=== PATIENT | male | born 1945 | race Caucasian/White ===

== ENCOUNTER → 2017-12-19 | Emergency (ER) | payer MEDICARE ==
[~2017-12-19] MED LIST: Pepcid 20 MG VIAL IV ONE; Sodium Chloride 0.9% 1000 ML 1,000 ML ONE
--- NOTE | 2017-12-19 16:26 | XRAY ---
Indication: Syncope. Comparison: March 08, 2011. Portable chest remains hyperinflated and clear with a few incidental calcified granulomas. Heart is not enlarged for AP portable technique again demonstrating previous cardiac valvular replacement surgery. Bony thorax intact again with mild osteopenia and degenerative changes. Impression: Stable nonacute hyperinflated chest with chronic features.
[2017-12-19 16:27] LABS: Granulocyte Absolute (ANC) 8.54 (1.4-6.9); Hematocrit 36.8 % (42-50); Hemoglobin 12.3 gm/dl (12.5-18.0); Mean Cell Volume 95.8 fl (78-100); Mean Corpuscular Hgb Concent. 33.4 g/dl (32-36); Mean Platelet Volume 9.9 fl (6-9.5); Platelet Count 290 K/mm3 (150-450); Red Blood Count 3.84 M/mm3 (4.1-5.6); Red Cell Distribution Width 14.8 % (11.5-14.0); White Blood Count 10.2 K/mm3 (4.0-10.5)
[2017-12-19 16:37] LABS: INR 2.08 (0.8-3.0)
[2017-12-19 16:40] LABS: ALBUMIN 3.5 g/dL (3.5-5.0); ANION GAP 14.1 MEQ/L (5-15); BILIRUBIN,TOTAL 0.9 mg/dL (0.2-1.3); Creatinine 1 2.23 mg/dL (0.66-1.25); Potassium 4.2 mmol/L (3.5-5.1)
[2017-12-19 16:51] LABS: ABO TYPING A
[2017-12-19 16:52] LABS: Antibody Screen NEGATIVE (NEGATIVE); RH TYPING POSITIVE
[2017-12-19 16:55] LABS: Lymphocytes 9 % (24-44); Monocyte 4 % (0.0-12.0); Neutrophils 87 % (36.-66.); Platelet Estimate NORMAL (NORMAL); Total Cells Counted 100
--- NOTE | 2017-12-19 17:56 | ERPHSYRPT ---
- History of Present Illness Time Seen by Provider: 12/19/17 15:47 Source: patient, family, EMS, other (Dr Esparza) Patient Subjective Stated Complaint: [facility] weakness,hypotension and low heart rate, Triage Nursing Assessment: pt states he racently was in hospital for uti and has not felt well since, co weakness Physician History: CC: syncope Hx: 72 y/o patient of Dr Esparza. He has recent admission X 2 at [facility] for CHF. He went to Dr Esparza office today. Was feling weak. In the waiting room he had a syncopal spell in which he passed out in the WR. No fall or injury. He had barely palpable pulse at that time. Was sent to ER. Improved with IVF bolus en route. He denies chest pain or shortness of breath. He has no headache. No focal weakness. No fever or chills. Had recent UTI at [facility]. Sees Dr Calixto cardiology. Severity: severe Allergies/Adverse Reactions: erythromycin base Allergy (Severe, Verified 12/19/17 16:09) Hives tramadol Allergy (Severe, Verified 12/19/17 16:09) URINE OUTPUT DOWN lisinopril Allergy (Verified 12/19/17 16:09) Home Medications: Amlodipine Besylate 5 mg [Norvasc 5 mg] 5 mg PO BID 10/22/14 [History] Carboxymethylcellulose Sodium [Thera Tears] 1 drop OP QID 10/22/14 [History] Cilostazol 100 mg PO BID 10/22/14 [History] Clopidogrel Bisulfate 75 mg [PLAVIX 75 MG Tablet] 75 mg PO DAILY 10/22/14 [History] Cyanocobalamin (Vitamin B-12) [Cyanocobalamin] 100 mcg PO DAILY 10/22/14 [ History] Digoxin 0.125 mg Tablet [Lanoxin 0.125MG TABLET] 0.125 mg PO DAILY [History] Ferrous Sulfate 325 mg [Feosol 325 mg] 325 mg PO DAILY 10/22/14 [History] Finasteride 5 mg [Proscar 5 MG] 5 mg PO DAILY 10/22/14 [History] Furosemide 40 mg PO BID PRN PRN 10/22/14 [History] Gemfibrozil 600 mg [Lopid 600 mg] 600 mg PO BID 10/22/14 [History] Glimepiride 4 mg [Amaryl 4 mg] 4 mg PO DAILY 10/22/14 [History] Glipizide 2.5 mg [Glucotrol Xl 2.5 MG] 2.5 mg PO DAILY 10/22/14 [History] Hydralazine HCl 100 mg PO BID 10/22/14 [History] Hydrocodone Bit/Acetaminophen [Hydrocodon-Acetaminophn 10-325] 1 each PO Q6HPRN PRN 10/22/14 [History] Insulin Aspart [Novolog Flexpen] 0 unit SQ UD 10/22/14 [History] Isosorbide Mononitrate 60 mg [Imdur 60MG] 60 mg PO DAILY 10/22/14 [History] Ketotifen Fumarate [Antihistamine Eye Drops] 1 drop OP BID 10/22/14 [History] Metoprolol Tartrate 50 mg [Lopressor 50 MG] 100 mg PO BID 10/22/14 [ History] Naproxen 250 mg PO BID 10/22/14 [History] Niacin 500 mg PO HS 10/22/14 [History] Nitroglycerin 0.4 mg Tablet [Nitrostat 0.4 MG Tablet] 0.4 mg SL UD PRN 06/26 [History] Potassium Chloride 10 Meq Tab* [Klor Con 10 MEQ] 10 meq PO BID 10/22/14 [ History] Pravastatin Sodium 40 mg PO HS 10/22/14 [History] Rivaroxaban 10 mg Tablet [Xarelto 10 mg Tablet] 10 mg PO DAILY 10/22/14 [ History] Tamsulosin HCl 0.4 mg [Flomax 0.4 MG] 2 cap PO HS 10/22/14 [History] Hx Tetanus, Diphtheria Vaccination/Date Given: No Hx Influenza Vaccination/Date Given: No Immunizations Up to Date: Yes - Review of Systems Constitutional: Malaise, Weakness, No Fever, No Chills Eyes: No Symptoms Ears, Nose, & Throat: No Symptoms Respiratory: No Cough, No Dyspnea Cardiac: Syncope, No Chest Pain, No Palpitations Abdominal/Gastrointestinal: No Abdominal Pain, No Nausea, No Vomiting, No Diarrhea Genitourinary Symptoms: Hesitancy, No Dysuria Skin: No Rash Neurological: No Headache All Other Systems: Reviewed and Negative - Past Medical History Pertinent Past Medical History: Yes Neurological History: TIA ENT History: No Pertinent History Cardiac History: Arrhythmia Respiratory History: No Pertinent History Endocrine Medical History: Diabetes Type II Musculoskeletal History: Arthritis GI Medical History: No Pertinent History History: Other Psycho-Social History: No Pertinent History Male Reproductive Disorders: Prostate Problems Other Medical History: recent UTI 2017 - Past Surgical History Past Surgical History: Yes Neuro Surgical History: No Pertinent History Cardiac: CABG, Cardiac Stent, Valve Replacement Respiratory: No Pertinent History Gastrointestinal: No Pertinent History, Hernia Repair Genitourinary: No Pertinent History Musculoskeletal: Joint Replacement Male Surgical History: Other Other Surgical History: R KNEE REPLACED - Social History Smoking Status: Unknown if ever smoked Exposure to second hand smoke: No Drug Use: none Patient Lives Alone: Yes - Nursing Vital Signs Nursing Vital Signs: Initial Vital Signs Temperature 97.0 F 12/19/17 15:44 Pulse Rate 60 12/19/17 15:44 Respiratory Rate 16 12/19/17 15:44 Blood Pressure 120/70 12/19/17 15:44 O2 Sat by Pulse Oximetry 96 12/19/17 15:44 Pain Scale Pain Intensity 0 - Physical Exam General Appearance: alert Eye Exam: PERRL/EOMI Ears, Nose, Throat Exam: moist mucous membranes Neck Exam: normal inspection, non-tender, supple Respiratory Exam: normal breath sounds Cardiovascular Exam: bradycardia, irregular Gastrointestinal/Abdomen Exam: soft, No tenderness, No distention Back Exam: normal inspection Extremity Exam: normal inspection, normal range of motion, No pedal edema Neurologic Exam: alert, oriented x 3, cooperative, hydro technician II-XII nml as tested, sensation nml, No motor deficits Skin Exam: warm, dry SpO2 Interpretation: normal SpO2: 96 Oxygen Delivery: Room Air - Course Nursing assessment & vital signs reviewed: Yes EKG Interpreted by Me: RATE (55), A-fib (slow), Left Bundle Branch Block ( similar to prior tracing) Ordered Tests: Active Orders 24 hr Category Date Time Status Clean Catch Urine Specimen STAT Care 12/19/17 15:47 Active EKG-ER Only STAT Care 12/19/17 15:47 Active IV Insertion STAT Care 12/19/17 15:47 Active NPO (ED) STAT Care 12/19/17 15:47 Active CHEST 1 VIEW (PORTABLE) Stat Exams 12/19/17 15:47 Completed CBC W DIFF Stat Lab 12/19/17 15:50 Completed CMP Stat Lab 12/19/17 15:50 Completed LIPASE Stat Lab 12/19/17 15:50 Completed Lactic Acid Stat Lab 12/19/17 16:55 Completed MAGNESIUM Stat Lab 12/19/17 15:50 Completed Manual Differential NC Stat Lab 12/19/17 15:50 Completed Occult Blood,Stool Other Stat Lab 12/19/17 15:47 Uncollected PROTIME WITH INR Stat Lab 12/19/17 15:50 Completed TROPONIN Q3H Lab 12/19/17 15:50 Completed TROPONIN Q3H Lab 12/19/17 19:00 Ordered TROPONIN Q3H Lab 12/19/17 22:00 Ordered TROPONIN Q3H Lab 12/20/17 01:00 Ordered TROPONIN Q3H Lab 12/20/17 04:00 Ordered UA W/RFX UR CULTURE Stat Lab 12/19/17 15:47 Ordered Medication Summary Discontinued Medications Generic Name Dose Route Start Last Admin Trade Name Freq PRN Reason Stop Dose Admin Famotidine 20 mg 12/19/17 15:47 Pepcid 20 Mg Vial IV 12/19/17 15:48 STAT ONE Sodium Chloride 250 mls @ 999 mls/hr 12/19/17 15:47 Sodium Chloride 0.9% 1000 Ml IV 12/19/17 16:02 .Q16M STA Lab/Rad Data: Laboratory Result Diagrams 12/19/17 15:50 12/19/17 15:50 Laboratory Results 12/19/17 12/19/17 12/19/17 Range/Units Unknown 16:55 15:50 WBC (4.0-10.5) K/mm3 RBC (4.1-5.6) M/mm3 Hgb (12.5-18.0) gm/dl Hct (42-50) % MCV (78-100) fl MCH (26-32) pg MCHC (32-36) g/dl RDW (11.5-14.0) % Plt Count (150-450) K/mm3 MPV (6-9.5) fl Absolute Granulocytes (1.4-6.9) Segmented Neutrophils (36.-66.) % Lymphocytes (Manual) (24-44) % Monocytes (Manual) (0.0-12.0) % Differential Comment Platelet Estimate (NORMAL) PT (8.83-12.87) SECONDS INR (0.8-3.0) Sodium (137-145) mmol/L Potassium (3.5-5.1) mmol/L Chloride (98-107) mmol/L Carbon Dioxide (22-30) mmol/L Anion Gap (5-15) MEQ/L BUN (9-20) mg/dL Creatinine (0.66-1.25) mg/dL Estimated GFR ML/MIN Glucose (74-106) mg/dL Lactic Acid 0.9 (0.4-2.0) Calcium (8.4-10.2) mg/dL Magnesium 2.3 (1.6-2.3) mg/dL Total Bilirubin (0.2-1.3) mg/dL AST (17-59) U/L ALT (0-50) U/L Alkaline Phosphatase (38-126) U/L Troponin I (0.000-0.034) ng/mL Serum Total Protein (6.3-8.2) g/dL Albumin (3.5-5.0) g/dL Lipase (23-300) U/L Digoxin 1.5 (0.8-1.9) ng/mL ABO Group Rh Factor Antibody Screen (NEGATIVE) 12/19/17 12/19/17 12/19/17 Range/Units 15:50 15:50 15:50 WBC (4.0-10.5) K/mm3 RBC (4.1-5.6) M/mm3 Hgb (12.5-18.0) gm/dl Hct (42-50) % MCV (78-100) fl MCH (26-32) pg MCHC (32-36) g/dl RDW (11.5-14.0) % Plt Count (150-450) K/mm3 MPV (6-9.5) fl Absolute Granulocytes (1.4-6.9) Segmented Neutrophils (36.-66.) % Lymphocytes (Manual) (24-44) % Monocytes (Manual) (0.0-12.0) % Differential Comment Platelet Estimate (NORMAL) PT 23.3 H (8.83-12.87) SECONDS INR 2.08 (0.8-3.0) Sodium (137-145) mmol/L Potassium (3.5-5.1) mmol/L Chloride (98-107) mmol/L Carbon Dioxide (22-30) mmol/L Anion Gap (5-15) MEQ/L BUN (9-20) mg/dL Creatinine (0.66-1.25) mg/dL Estimated GFR ML/MIN Glucose (74-106) mg/dL Lactic Acid (0.4-2.0) Calcium (8.4-10.2) mg/dL Magnesium (1.6-2.3) mg/dL Total Bilirubin (0.2-1.3) mg/dL AST (17-59) U/L ALT (0-50) U/L Alkaline Phosphatase (38-126) U/L Troponin I 0.042 H* (0.000-0.034) ng/mL Serum Total Protein (6.3-8.2) g/dL Albumin (3.5-5.0) g/dL Lipase (23-300) U/L Digoxin (0.8-1.9) ng/mL ABO Group A Rh Factor POSITIVE Antibody Screen NEGATIVE (NEGATIVE) 12/19/17 12/19/17 Range/Units 15:50 15:50 WBC 10.2 (4.0-10.5) K/mm3 RBC 3.84 L (4.1-5.6) M/mm3 Hgb 12.3 L (12.5-18.0) gm/dl Hct 36.8 L (42-50) % MCV 95.8 (78-100) fl MCH 32.0 (26-32) pg MCHC 33.4 (32-36) g/dl RDW 14.8 H (11.5-14.0) % Plt Count 290 (150-450) K/mm3 MPV 9.9 H (6-9.5) fl Absolute Granulocytes 8.54 H (1.4-6.9) Segmented Neutrophils 87 H (36.-66.) % Lymphocytes (Manual) 9 L (24-44) % Monocytes (Manual) 4 (0.0-12.0) % Differential Comment NORMAL Platelet Estimate NORMAL (NORMAL) PT (8.83-12.87) SECONDS INR (0.8-3.0) Sodium 130 L (137-145) mmol/L Potassium 4.2 (3.5-5.1) mmol/L Chloride 92 L (98-107) mmol/L Carbon Dioxide 28 (22-30) mmol/L Anion Gap 14.1 (5-15) MEQ/L BUN 76 H (9-20) mg/dL Creatinine 2.23 H (0.66-1.25) mg/dL Estimated GFR 31.1 ML/MIN Glucose 284 H (74-106) mg/dL Lactic Acid (0.4-2.0) Calcium 9.0 (8.4-10.2) mg/dL Magnesium (1.6-2.3) mg/dL Total Bilirubin 0.90 (0.2-1.3) mg/dL AST 28 (17-59) U/L ALT 26 (0-50) U/L Alkaline Phosphatase 57 (38-126) U/L Troponin I (0.000-0.034) ng/mL Serum Total Protein 6.0 L (6.3-8.2) g/dL Albumin 3.5 (3.5-5.0) g/dL Lipase 585 H (23-300) U/L Digoxin (0.8-1.9) ng/mL ABO Group Rh Factor Antibody Screen (NEGATIVE) - Progress Progress Note: 12/19/17 17:55 CXR: Portable chest remains hyperinflated and clear with a few incidental calcified granulomas. Heart is not enlarged for AP portable technique again demonstrating previous cardiac valvular replacement surgery. Bony thorax intact again with mild osteopenia and degenerative changes. Pt improved with IVF bolus. O2 ok. BP better. Was [address] Esparza who advised transfer to [facility] as troponin elevated and he had profound syncope and needs cardiology. 12/19/17 18:[address] Shelton hospitalist at [facility] whoo accepts pt. ASA not given as pt on coumadin. Cath urine ssent and is pending. Counseled pt/family regarding: lab results, diagnosis, need for follow-up, rad results - Departure Time of Disposition: 18:09 Departure Disposition: Transfer ([facility]) Clinical Impression: Syncope and collapse, Bradycardia, Elevated troponin Condition: Fair Critical Care Time: No Referrals: KARI ESPARZA [Primary Care Provider] -
[2017-12-19 18:17] LABS: Appearance CLEAR (CLEAR); Bilirubin NEGATIVE (NEGATIVE); Blood NEGATIVE Ery/ul (0-5); Glucose NEGATIVE (NEGATIVE); Ketones NEGATIVE (NEGATIVE); Leukocyte Esterase NEGATIVE (NEGATIVE); Nitrite NEGATIVE (NEGATIVE); Protein,Urine Dip NEGATIVE (Negative); Specific Gravity 1.015 (1.005-1.025); Urobilinogen NORMAL mg/dL (0-1)
[2017-12-19 18:53] VITALS: BP 114/52; PULSE 64; O2SAT 98
== END | disposition short-term general hospital (02) ==
LOC: ED 15:43
DX: R55 Syncope and collapse (principal); R00.1 Bradycardia, unspecified; R77.8 Other specified abnormalities of plasma proteins; I48.91 Unspecified atrial fibrillation; I44.7 Left bundle-branch block, unspecified; Z79.4 Long term (current) use of insulin; Z79.899 Other long term (current) drug therapy; Z79.01 Long term (current) use of anticoagulants; E11.9 Type 2 diabetes mellitus without complications
CPT/HCPCS: 36000; 36415; 71045; 80053; 80162; 81002; 83605; 83690; 83735; 84484; 85025; 85610; 86850; 86900; 86901; 93005; 93041; 96360; 96374; 99285; P9612; 99283

== ENCOUNTER 2018-01-26 10:55 | Emergency (ER) | payer MEDICARE ==
[2018-01-26 11:32] LABS: Granulocyte Absolute (ANC) 5.97 (1.4-6.9); Hematocrit 44.7 % (42-50); Hemoglobin 14.6 gm/dl (12.5-18.0); Mean Cell Volume 96.5 fl (78-100); Mean Corpuscular Hemoglobin 31.5 pg (26-32); Mean Corpuscular Hgb Concent. 32.7 g/dl (32-36); Mean Platelet Volume 9.4 fl (6-9.5); Platelet Count 216 K/mm3 (150-450); Red Blood Count 4.63 M/mm3 (4.1-5.6); Red Cell Distribution Width 16.2 % (11.5-14.0); White Blood Count 9.7 K/mm3 (4.0-10.5)
[2018-01-26 11:33] LABS: ADD MANUAL DIFF? YES (NO)
[2018-01-26] MEDS ORDERED: Sodium Chloride 0.9% 1000 ML 1,000 ML (11:37)
[2018-01-26] MEDS: Sodium Chloride 0.9% 1000 ML 1,000 ML IV (11:38)
[2018-01-26 12:07] LABS: ALBUMIN 3.9 g/dL (3.5-5.0); ALKALINE PHOSPHATASE 65 U/L (38-126); BLOOD UREA NITROGEN 37 mg/dL (9-20); CHLORIDE 98 mmol/L (98-107); Calcium 9.9 mg/dL (8.4-10.2); Carbon Dioxide 31 mmol/L (22-30); Creatinine 1 1.53 mg/dL (0.66-1.25); EST GLOMERULAR FILTRATION RATE 48.1 ML/MIN; Glucose 99 mg/dL (74-106); Potassium 3.7 mmol/L (3.5-5.1); SGOT/AST 28 U/L (17-59); SGPT/ALT 26 U/L (0-50); SODIUM 141 mmol/L (137-145); Total Protein 6.8 g/dL (6.3-8.2)
[2018-01-26 12:23] LABS: TROPONIN 0.071 ng/mL (0.000-0.034)
[2018-01-26 13:51] LABS: Lymphocytes 29 % (24-44); Monocyte 4 % (0.0-12.0); Neutrophils 67 % (36.-66.); Total Cells Counted 100
[2018-01-26 13:52] LABS: ANISOCYTOSIS 1+; Platelet Estimate NORMAL (NORMAL)
== END 2018-01-26 13:06 | disposition left against medical advice (07) ==
LOC: ED 10:55
CPT/HCPCS: 36000; 36415; 71046; 80053; 84484; 85025; 93005

== ENCOUNTER 2018-02-27 10:34 | Inpatient (IN) | payer MEDICARE ==
[2018-02-27 11:31] LABS: A-aADO2 82; ABG POTASSIUM 3.5 (3.5-5.1); ARTERIAL BLD GAS O2 SATURATION 97.6 % (95-100); ARTERIAL BLOOD GAS BASE EXCESS 5.9 (-2.0-2.0); ARTERIAL BLOOD GAS FIO2 28 %; ARTERIAL BLOOD GAS PCO2 31 mmHg (35-45); ARTERIAL BLOOD GAS PO2 79 mmHg (75-100); CARBOXYHEMOGLOBIN 1.7 % THgb (0.0-6.9); HCO3- 27.8 (22-28); HGB O2 SAT 94.9 g/dF (94-100); Lactic Acid 1.9 (0.4-2.0); Methhemoglobin 1.1 % (1.4-1.5); paO2 pAO1 0.49
[2018-02-27] MEDS ORDERED: Sodium Chloride 0.9% 10 ML FLUSH Syringe IV PRN (11:31)
[2018-02-27 11:34] LABS: ARTERIAL BLOOD GAS pH 7.56 (7.35-7.45)
[2018-02-27 11:35] LABS: ABG SITE RIGHT RADIAL; ALLEN TEST OK? YES
[2018-02-27 11:39] LABS: BASOPHIL % 0.1 % (0.0-0.4); Basophil (Absolute #) 0.01 (0-0.4); Eosinophil % 1.3 % (0.00-5.0); Eosinophil (Absolute #) 0.14 (0-0.5); Granulocyte Absolute (ANC) 8.64 (1.4-6.9); Granulocytes % 82.9 % (36.0-66.0); Hematocrit 40.6 % (42-50); Hemoglobin 13.6 gm/dl (12.5-18.0); Lymphocyte (Absolute #) 0.99 (1.0-4.6); Lymphocytes % 9.5 % (24.0-44.0); Mean Cell Volume 91.4 fl (78-100); Mean Corpuscular Hemoglobin 30.6 pg (26-32); Mean Corpuscular Hgb Concent. 33.5 g/dl (32-36); Mean Platelet Volume 8.6 fl (6-9.5); Monocyte (Absolute #) 0.65 (0.0-1.3); Monocytes % 6.2 % (0.0-12.0); Platelet Count 262 K/mm3 (150-450); Red Blood Count 4.44 M/mm3 (4.1-5.6); Red Cell Distribution Width 15.4 % (11.5-14.0); White Blood Count 10.4 K/mm3 (4.0-10.5)
[2018-02-27] MEDS: ROCEPHIN 1 Gm-D5w 50 ml Bag** 1 G/50 ML IVPB IV SCH (11:59)
[2018-02-27] MEDS ORDERED: TYLENOL 325 MG PO ONE (12:00)
[2018-02-27] MEDS: Sodium Chloride 0.9% 10 ML FLUSH Syringe IV SCH ×2 (12:06→21:22)
--- NOTE | 2018-02-27 12:21 | XRAY ---
Indication: Fever and weakness. Comparison: January 26, 2018. PA/lateral chest again hyperinflated with new right lower lobe airspace disease and small effusion. Left lung clear. Heart is not enlarged again demonstrating previous cardiac valvular replacement surgery.
[2018-02-27 12:41] LABS: ALBUMIN 3.6 g/dL (3.5-5.0); ANION GAP 13.4 MEQ/L (5-15); BILIRUBIN,TOTAL 0.6 mg/dL (0.2-1.3); Calcium 10.2 mg/dL (8.4-10.2); Creatinine 1 1.29 mg/dL (0.66-1.25); Potassium 3.7 mmol/L (3.5-5.1); Total Protein 6.7 g/dL (6.3-8.2)
[2018-02-27] MEDS ORDERED: TYLENOL 325 MG PO PRN (13:00)
[2018-02-27] MEDS ORDERED: Zithromax 500 MG/ 250 ML NaCl Premix 500 MG/250 ML IVPB IV SCH (13:15)
[2018-02-27 13:43] LABS: Appearance HAZY (CLEAR); Bacteria RARE /HPF (NEGATIVE); Bilirubin NEGATIVE (NEGATIVE); Blood 50 Ery/ul (0-5); Epithelial Cells RARE /HPF (FEW); Glucose NEGATIVE (NEGATIVE); Ketones NEGATIVE (NEGATIVE); Leukocyte Esterase TRACE (NEGATIVE); Nitrite NEGATIVE (NEGATIVE); Protein,Urine Dip 500 (Negative); RBC 0-2 /HPF (0-2); Urobilinogen NORMAL mg/dL (0-1); WBC 0-2 /HPF (0-5)
[2018-02-27] MEDS ORDERED: DUONEB 0.5-3 MG/3 ml Neb IH ONE (14:28)
[2018-02-27] MEDS: DUONEB 0.5-3 MG/3 ml Neb IH SCH (14:30)
[2018-02-27] MEDS ORDERED: NON-FORMULARY ITEM (Ondansetron Hcl [Zofran] 4 MG) PO PRN (14:58)
[2018-02-27] MEDS ORDERED: Miralax Powder 17GM PACKET PO PRN (14:58)
[2018-02-27] MEDS ORDERED: Nitrostat 0.4 MG Tablet SL PRN (14:58)
[2018-02-27] MEDS ORDERED: Senokot-S Tablet PO PRN (14:58)
[2018-02-27 15:39] LABS: INR 4.15 (0.8-3.0)
[2018-02-27] MEDS ORDERED: MEDICATION INTERVENTION MC SCH ×2 (16:15→16:30)
[2018-02-27] MEDS ORDERED: ZOFRAN ODT 4 MG PO PRN (16:17)
[2018-02-27] MEDS: Klor Con 10 MEQ PO SCH ×2 (16:18→21:17)
[2018-02-27] MEDS: BUMEX 1 MG PO SCH (16:18)
[2018-02-27] MEDS: NovoLOG Insulin SQ SCH (16:56)
[2018-02-27] MEDS ORDERED: INSULIN ASPART 3 UNIT SQ SCH (17:00)
[2018-02-27] MEDS: Lopressor 50 MG PO SCH (21:16)
[2018-02-27] MEDS: FEOSOL 325 MG PO SCH (21:17)
[2018-02-27] MEDS: NON-FORMULARY ITEM (Hydroxychloroquine Sulfate [Plaquenil] 0 MG) PO SCH (21:17)
[2018-02-27] MEDS: ZOCOR 20MG PO SCH (21:17)
[2018-02-27] MEDS: Acidophilus TABLET PO SCH (21:17)
[2018-02-27] MEDS: Lantus Insulin SQ SCH (21:18)
[2018-02-27] MEDS: Ambien 10 MG PO PRN (21:56)
[2018-02-27] MEDS ORDERED: BIFIDO LONGUM PO SCH (22:00)
[2018-02-27] MEDS ORDERED: NON-FORMULARY ITEM (Glycopyrrolate/Formoterol Fum [Bevespi Aerosphere Inhaler] 2 PUFF) IH SCH (22:00)
[2018-02-27] MEDS ORDERED: ACIDOPHILUS PO SCH (22:00)
[2018-02-27] MEDS ORDERED: NON-FORMULARY ITEM (Colestipol Hcl [Colestid] 1 GM) PO SCH (22:00)
[2018-02-27] MEDS ORDERED: NIACIN 500 MG PO SCH (22:00)
[2018-02-27] MEDS ORDERED: NON-FORMULARY ITEM (Bumetanide [Bumex] 2 MG) PO SCH (22:00)
[2018-02-28] MEDS: Sodium Chloride 0.9% 10 ML FLUSH Syringe IV SCH ×3 (05:05→22:09)
[2018-02-28 05:36] LABS: BASOPHIL % 0.2 % (0.0-0.4); Basophil (Absolute #) 0.02 (0-0.4); Eosinophil % 3.4 % (0.00-5.0); Eosinophil (Absolute #) 0.28 (0-0.5); Granulocyte Absolute (ANC) 5.84 (1.4-6.9); Granulocytes % 71.6 % (36.0-66.0); Hematocrit 38.9 % (42-50); Hemoglobin 12.8 gm/dl (12.5-18.0); Lymphocyte (Absolute #) 1.41 (1.0-4.6); Lymphocytes % 17.3 % (24.0-44.0); Mean Cell Volume 92.8 fl (78-100); Mean Corpuscular Hemoglobin 30.5 pg (26-32); Mean Corpuscular Hgb Concent. 32.9 g/dl (32-36); Monocyte (Absolute #) 0.61 (0.0-1.3); Monocytes % 7.5 % (0.0-12.0); Platelet Count 256 K/mm3 (150-450); Red Blood Count 4.19 M/mm3 (4.1-5.6); Red Cell Distribution Width 15.5 % (11.5-14.0); White Blood Count 8.2 K/mm3 (4.0-10.5)
[2018-02-28 05:48] LABS: INR 4.04 (0.8-3.0)
[2018-02-28 05:57] LABS: ANION GAP 11.3 MEQ/L (5-15); Calcium 9.4 mg/dL (8.4-10.2); Creatinine 1 1.34 mg/dL (0.66-1.25); Potassium 3.9 mmol/L (3.5-5.1)
[2018-02-28] MEDS: PROVENTIL 2.5 MG/3 ML NEB IH PRN ×2 (07:02→20:03)
[2018-02-28] MEDS: DUONEB 0.5-3 MG/3 ml Neb IH SCH ×2 (07:06)
--- NOTE | 2018-02-28 07:50 | PCM.HP ---
History of Present Illness - Chief Complaint Chief Complaint: pneumonia Date: 02/28/18 History of Present Illness: is a 72 year old male. who presented to the clinic with 3 days of cough fatigue and no energy with shortness of breath. He found to be febrile and dyspneic and admitted for evaluation that showed pneumonia. He was placed on antibiotics and feels a little better this am still weak and fatigued. He has had increased cough this am productive of some brown/ blood tinged mucous - Review of Systems Constitutional: Fever, Chills, Fatigue, Lethargy, Night Sweats, Weakness Eyes: No Symptoms Ears, Nose, & Throat: No Symptoms Respiratory: Cough, Short Of Breath Cardiac: No Chest Pain, No Edema, No Syncope Abdominal/Gastrointestinal: No Abdominal Pain, No Nausea, No Vomiting, No Diarrhea Genitourinary Symptoms: No Dysuria Musculoskeletal: No Back Pain, No Neck Pain Skin: No Rash Neurological: No Dizziness, No Focal Weakness, No Sensory Changes Psychological: No Symptoms Endocrine: No Symptoms Hematologic/Lymphatic: No Symptoms Immunological/Allergic: No Symptoms Medications & Allergies Home Medications: Home Medication List Clopidogrel Bisulfate 75 mg [PLAVIX 75 MG Tablet] 75 mg PO DAILY 10/22/14 [History Confirmed 02/27/18] Ferrous Sulfate 325 mg [Feosol 325 mg] 325 mg PO BID 10/22/14 [History Confirmed 02/27/18] Finasteride 5 mg [Proscar 5 MG] 5 mg PO DAILY 10/22/14 [History Confirmed 02/27/18] Insulin Aspart [Novolog Flexpen] 3 unit SQ TIDWMEALS 10/22/14 [History Confirmed 02/27/18] Metoprolol Tartrate 50 mg [Lopressor 50 MG] 100 mg PO BID 10/22/14 [ History Confirmed 02/27/18] Niacin 500 mg PO HS 10/22/14 [History Confirmed 02/27/18] Nitroglycerin 0.4 mg Tablet [Nitrostat 0.4 MG Tablet] 0.4 mg SL UD PRN 06/26 [History Confirmed 02/27/18] Potassium Chloride 10 Meq Tab* [Klor Con 10 MEQ] 10 meq PO TID 10/22/14 [ History Confirmed 02/27/18] Tamsulosin HCl 0.4 mg [Flomax 0.4 MG] 2 cap PO DAILY 10/22/14 [History Confirmed 02/27/18] Acidophilus/Bifido Longum [Lactobacillus Capsule] 1 tab PO BID 01/26/18 [ History Confirmed 02/27/18] Allopurinol [Allopurinol] 100 mg PO DAILY 01/26/18 [History Confirmed 02/27/18] Atorvastatin Calcium [Lipitor 40Mg] 40 mg PO DAILY 01/26/18 [History Confirmed 02/27/18] Bumetanide [Bumex] 2 mg PO BID 01/26/18 [History Confirmed 02/27/18] Colestipol HCl [Colestid] 1 gm PO BID 01/26/18 [History Confirmed 02/27/18] Folic Acid 1 mg [Folate 1 mg] 1 mg PO DAILY 01/26/18 [History Confirmed ] Hydroxychloroquine Sulfate [Plaquenil] 200 mg PO BID 01/26/18 [History Confirmed 02/27/18] Prednisone 20 mg [Deltasone 20 mg] 20 mg PO DAILY 01/26/18 [History Confirmed 02/27/18] Warfarin Sodium [Warfarin Sodium] 6 mg PO UD 01/26/18 [History Confirmed ] Zolpidem Tartrate 10 mg [Ambien 10 MG] 10 mg PO HSPRN PRN 01/26/18 [History Confirmed 02/27/18] Albuterol 2.5 mg/3 ml Neb [Proventil 2.5 mg/3 ml Neb] 1 neb IH Q6HPRN PRN 02/27/18 [History Confirmed 02/27/18] Albuterol Common Canister [Proventil Common Canister] 2 puff IH Q4HPRN PRN 02/27/18 [History Confirmed 02/27/18] Digoxin 0.125 mg Tablet [Lanoxin 0.125MG TABLET] 0.125 mg PO DAILY [History Confirmed 02/27/18] Glycopyrrolate/Formoterol Fum [Bevespi Aerosphere Inhaler] 2 puff IH BID [History Confirmed 02/27/18] Insulin Glargine [Lantus Insulin] 20 unit SQ HS 02/27/18 [History Confirmed 02/27/18] Mupirocin [Bactroban OINTMENT] 1 applic TOP DAILY 02/27/18 [History Confirmed 02/27/18] Ondansetron HCl [Zofran] 4 mg PO Q4HPRN PRN 02/27/18 [History Confirmed 02/27/18 ] Oxymetazoline HCl [Nasal [place]] 1 spray NS DAILY PRN PRN 02/27/18 [History Confirmed 02/27/18] Polyethylene Glycol 3350 17 gm [Miralax Powder 17GM PACKET] 17 gm PO BIDPRN PRN 02/27/18 [History Confirmed 02/27/18] Sennosides/Docusate Sodium [Senna-Docusate Sodium Tablet] 2 tab PO BIDPRN PRN [History Confirmed 02/27/18] Umeclidinium Brm/Vilanterol Tr [Anoro Ellipta 62.5-25 Mcg INH] 1 puff IH DAILY 02/27/18 [History Confirmed 02/27/18] Warfarin Sodium 2.5 mg [Coumadin 2.5 MG] 2.5 mg PO UD 02/27/18 [History Confirmed 02/27/18] Allergies/Adverse Reactions: Allergies Allergy/AdvReac Type Severity Reaction Status Date / Time erythromycin base Allergy Severe Hives Verified 02/27/18 11:39 tramadol Allergy Severe Verified 02/27/18 11:39 lisinopril Allergy Verified 02/27/18 11:39 - Past Medical History Past Medical History: Yes Neurological History: TIA ENT History: No Pertinent History Cardiac History: Arrhythmia Respiratory History: No Pertinent History Endocrine Medical History: Diabetes Type II Musculoskelatal History: Arthritis GI Medical History: No Pertinent History History: Other Pyscho-Social History: No Pertinent History Male Reproductive Disorders: Prostate Problems Comment: recent UTI 2017 - Past Surgical History Past Surgical History: Yes Neuro Surgical History: No Pertinent History Cardiac History: CABG, Cardiac Stent, Valve Replacement Respiratory Surgery: No Pertinent History GI Surgical History: No Pertinent History, Hernia Repair Genitourinary Surgical Hx: No Pertinent History Musculskeletal Surgical Hx: Joint Replacement Male Surgical History: Other Other Surgical History: R KNEE REPLACED - Social History Smoking Status: Never smoker Exposure to second hand smoke: No Alcohol: None Drug Use: none - Physical Exam Vital Signs: Vital Signs - 24 hr Temp Pulse Resp BP Pulse Ox 02/28/18 07:23 98.2 F 82 18 136/78 94 L 02/28/18 07:06 72 24 95 02/28/18 04:00 99.2 F 80 22 137/70 95 02/28/18 00:00 98.1 F 70 18 148/73 97 02/27/18 20:00 97.3 F 98 H 18 136/82 98 02/27/18 16:00 98.4 F 105 H 18 144/72 98 02/27/18 14:34 93 H 20 96 02/27/18 13:45 100 H 20 96 02/27/18 11:38 100.5 F 100 H 18 132/71 89 L 02/27/18 10:50 100.5 F 100 H 132/71 Oxygen-Last 24 hours O2 Percentage 2 Liters = 28% O2 Percentage 2 Liters = 28% O2 Percentage 2 Liters = 28% O2 Percentage 3 Liters = 32% Oxygen Flowrate (L/min)-RT 2 General Appearance: no apparent distress, alert Neurologic Exam: alert, oriented x 3, cooperative, normal mood/affect, nml cerebellar function, nml station & gait, sensation nml, No motor deficits Eye Exam: PERRL/EOMI, eyes nml inspection Ears, Nose, Throat Exam: normal ENT inspection, pharynx normal, moist mucous membranes Neck Exam: normal inspection, non-tender, supple, full range of motion Respiratory Exam: crackles/rales (right base), No respiratory distress Cardiovascular Exam: regular rate/rhythm, normal heart sounds, normal peripheral pulses Gastrointestinal/Abdomen Exam: soft, normal bowel sounds, No tenderness, No mass Back Exam: normal inspection, normal range of motion, No CVA tenderness, No vertebral tenderness Extremity Exam: normal inspection, normal range of motion, pelvis stable Skin Exam: normal color, warm, dry, No rash Lymphatic Exam: No adenopathy Results - Labs Lab/Micro Results: Accuchecks Date 02/27/18 Date 02/27/18 Time 22:00 Time 16:30 Accucheck Value: 321 Accucheck Value: 261 Lab Results-Last 24 Hours 02/27/18 02/27/18 02/27/18 Range/Units 11:15 11:29 11:29 WBC 10.4 (4.0-10.5) K/mm3 RBC 4.44 (4.1-5.6) M/mm3 Hgb 13.6 (12.5-18.0) gm/dl Hct 40.6 L (42-50) % MCV 91.4 (78-100) fl MCH 30.6 (26-32) pg MCHC 33.5 (32-36) g/dl RDW 15.4 H (11.5-14.0) % Plt Count 262 (150-450) K/mm3 MPV 8.6 (6-9.5) fl Gran % 82.9 H (36.0-66.0) % Eos # (Auto) 0.14 (0-0.5) Absolute Lymphs (auto) 0.99 L (1.0-4.6) Absolute Monos (auto) 0.65 (0.0-1.3) Lymphocytes % 9.5 L (24.0-44.0) % Monocytes % 6.2 (0.0-12.0) % Eosinophils % 1.3 (0.00-5.0) % Basophils % 0.1 (0.0-0.4) % Absolute Granulocytes 8.64 H (1.4-6.9) Basophils # 0.01 (0-0.4) PT (8.83-12.87) SECONDS INR (0.8-3.0) Puncture Site RIGHT RADIAL pCO2 31 L (35-45) mmHg pO2 79 (75-100) mmHg Base Excess 5.9 H (-2.0-2.0) O2 Saturation 94.9 (94-100) g/dF ABG pH 7.56 H* (7.35-7.45) ABG HCO3 27.8 (22-28) ABG O2 Sat (Measured) 97.6 (95-100) % Anil Test YES A-a Gradient 82 a/A Ratio 0.49 Hemoglobin 13.0 Carboxyhemoglobin 1.7 (0.0-6.9) % THgb Methemoglobin 1.1 L (1.4-1.5) % Potassium 3.5 3.7 (3.5-5.1) Temperature 37.0 C POC O2 Flow Rate 28 % Sodium 140 (137-145) mmol/L Chloride 102 (98-107) mmol/L Carbon Dioxide 29 (22-30) mmol/L Anion Gap 13.4 (5-15) MEQ/L BUN 41 H (9-20) mg/dL Creatinine 1.29 H (0.66-1.25) mg/dL Estimated GFR 58.5 ML/MIN Glucose 55 L (74-106) mg/dL Hemoglobin A1c (4.5-6.0) % Lactic Acid 1.9 (0.4-2.0) Calcium 10.2 (8.4-10.2) mg/dL Total Bilirubin 0.60 (0.2-1.3) mg/dL AST 22 (17-59) U/L ALT 23 (0-50) U/L Alkaline Phosphatase 67 (38-126) U/L NT-Pro-B Natriuret Pep 52665 H (0-900) pg/mL Serum Total Protein 6.7 (6.3-8.2) g/dL Albumin 3.6 (3.5-5.0) g/dL Ur Collection Type Urine Color (YELLOW) Urine Appearance (CLEAR) Urine pH (5-6) Ur Specific [place] (1.005-1.025) Urine Protein (Negative) Urine Ketones (NEGATIVE) Urine Blood (0-5) Maurice/ul Urine Nitrite (NEGATIVE) Urine Bilirubin (NEGATIVE) Urine Urobilinogen (0-1) mg/dL Ur Leukocyte Esterase (NEGATIVE) Urine Microscopic RBC (0-2) /HPF Urine Microscopic WBC (0-5) /HPF Ur Epithelial Cells (FEW) /HPF Urine Bacteria (NEGATIVE) /HPF Urine Glucose (NEGATIVE) mg/dL Specimen Received 02/27/18 02/27/18 02/27/18 Range/Units 11:30 12:38 13:00 WBC (4.0-10.5) K/mm3 RBC (4.1-5.6) M/mm3 Hgb (12.5-18.0) gm/dl Hct (42-50) % MCV (78-100) fl MCH (26-32) pg MCHC (32-36) g/dl RDW (11.5-14.0) % Plt Count (150-450) K/mm3 MPV (6-9.5) fl Gran % (36.0-66.0) % Eos # (Auto) (0-0.5) Absolute Lymphs (auto) (1.0-4.6) Absolute Monos (auto) (0.0-1.3) Lymphocytes % (24.0-44.0) % Monocytes % (0.0-12.0) % Eosinophils % (0.00-5.0) % Basophils % (0.0-0.4) % Absolute Granulocytes (1.4-6.9) Basophils # (0-0.4) PT 49.0 H (8.83-12.87) SECONDS INR 4.15 H (0.8-3.0) Puncture Site pCO2 (35-45) mmHg pO2 (75-100) mmHg Base Excess (-2.0-2.0) O2 Saturation (94-100) g/dF ABG pH (7.35-7.45) ABG HCO3 (22-28) ABG O2 Sat (Measured) (95-100) % Anil Test A-a Gradient a/A Ratio Hemoglobin Carboxyhemoglobin (0.0-6.9) % THgb Methemoglobin (1.4-1.5) % Potassium (3.5-5.1) Temperature C POC O2 Flow Rate % Sodium (137-145) mmol/L Chloride (98-107) mmol/L Carbon Dioxide (22-30) mmol/L Anion Gap (5-15) MEQ/L BUN (9-20) mg/dL Creatinine (0.66-1.25) mg/dL Estimated GFR ML/MIN Glucose (74-106) mg/dL Hemoglobin A1c 7.22 H (4.5-6.0) % Lactic Acid (0.4-2.0) Calcium (8.4-10.2) mg/dL Total Bilirubin (0.2-1.3) mg/dL AST (17-59) U/L ALT (0-50) U/L Alkaline Phosphatase (38-126) U/L NT-Pro-B Natriuret Pep (0-900) pg/mL Serum Total Protein (6.3-8.2) g/dL Albumin (3.5-5.0) g/dL Ur Collection Type CLEAN CATCH Urine Color YELLOW (YELLOW) Urine Appearance HAZY (CLEAR) Urine pH 5.0 (5-6) Ur Specific [place] 1.010 (1.005-1.025) Urine Protein 500 (Negative) Urine Ketones NEGATIVE (NEGATIVE) Urine Blood 50 (0-5) Maurice/ul Urine Nitrite NEGATIVE (NEGATIVE) Urine Bilirubin NEGATIVE (NEGATIVE) Urine Urobilinogen NORMAL (0-1) mg/dL Ur Leukocyte Esterase TRACE (NEGATIVE) Urine Microscopic RBC 0-2 (0-2) /HPF Urine Microscopic WBC 0-2 (0-5) /HPF Ur Epithelial Cells RARE (FEW) /HPF Urine Bacteria RARE (NEGATIVE) /HPF Urine Glucose NEGATIVE (NEGATIVE) mg/dL Specimen Received 02/27/18 1238 02/28/18 02/28/18 02/28/18 Range/Units 05:15 05:15 05:15 WBC 8.2 (4.0-10.5) K/mm3 RBC 4.19 (4.1-5.6) M/mm3 Hgb 12.8 (12.5-18.0) gm/dl Hct 38.9 L (42-50) % MCV 92.8 (78-100) fl MCH 30.5 (26-32) pg MCHC 32.9 (32-36) g/dl RDW 15.5 H (11.5-14.0) % Plt Count 256 (150-450) K/mm3 MPV 9.0 (6-9.5) fl Gran % 71.6 H (36.0-66.0) % Eos # (Auto) 0.28 (0-0.5) Absolute Lymphs (auto) 1.41 (1.0-4.6) Absolute Monos (auto) 0.61 (0.0-1.3) Lymphocytes % 17.3 L (24.0-44.0) % Monocytes % 7.5 (0.0-12.0) % Eosinophils % 3.4 (0.00-5.0) % Basophils % 0.2 (0.0-0.4) % Absolute Granulocytes 5.84 (1.4-6.9) Basophils # 0.02 (0-0.4) PT 47.7 H (8.83-12.87) SECONDS INR 4.04 H (0.8-3.0) Puncture Site pCO2 (35-45) mmHg pO2 (75-100) mmHg Base Excess (-2.0-2.0) O2 Saturation (94-100) g/dF ABG pH (7.35-7.45) ABG HCO3 (22-28) ABG O2 Sat (Measured) (95-100) % Anil Test A-a Gradient a/A Ratio Hemoglobin Carboxyhemoglobin (0.0-6.9) % THgb Methemoglobin (1.4-1.5) % Potassium 3.9 (3.5-5.1) Temperature C POC O2 Flow Rate % Sodium 139 (137-145) mmol/L Chloride 99 (98-107) mmol/L Carbon Dioxide 33 H (22-30) mmol/L Anion Gap 11.3 (5-15) MEQ/L BUN 42 H (9-20) mg/dL Creatinine 1.34 H (0.66-1.25) mg/dL Estimated GFR 56.0 ML/MIN Glucose 166 H (74-106) mg/dL Hemoglobin A1c (4.5-6.0) % Lactic Acid (0.4-2.0) Calcium 9.4 (8.4-10.2) mg/dL Total Bilirubin (0.2-1.3) mg/dL AST (17-59) U/L ALT (0-50) U/L Alkaline Phosphatase (38-126) U/L NT-Pro-B Natriuret Pep (0-900) pg/mL Serum Total Protein (6.3-8.2) g/dL Albumin (3.5-5.0) g/dL Ur Collection Type Urine Color (YELLOW) Urine Appearance (CLEAR) Urine pH (5-6) Ur Specific [place] (1.005-1.025) Urine Protein (Negative) Urine Ketones (NEGATIVE) Urine Blood (0-5) Maurice/ul Urine Nitrite (NEGATIVE) Urine Bilirubin (NEGATIVE) Urine Urobilinogen (0-1) mg/dL Ur Leukocyte Esterase (NEGATIVE) Urine Microscopic RBC (0-2) /HPF Urine Microscopic WBC (0-5) /HPF Ur Epithelial Cells (FEW) /HPF Urine Bacteria (NEGATIVE) /HPF Urine Glucose (NEGATIVE) mg/dL Specimen Received Accuchecks Date 02/27/18 Date 02/27/18 Time 22:00 Time 16:30 Accucheck Value: 321 Accucheck Value: 261 - Radiology Impressions Radiology Exams & Impressions: Radiology Procedures Category Date Time Status CHEST 2 VIEWS (PA AND LAT) Routine Exams 02/27/18 11:30 Completed - Other Procedures and Tests Respiratory Therapy 02/27/18 11:01 Oxygen NASAL CANNULA 2 lpm 02/28/18 07:00 Respiratory Nebulizer UD Assessment/Plan (1) Pneumonia Current Visit: Yes Status: Acute Qualifiers: Laterality: right Lung location: lower lobe of lung Assessment & Plan: continue rocephin fever improved since yesterday monitor sputum and blood cultures with the blood tinged sputum continue to hold the warfarin with the super therapeutic inr and monitor for any increased bleeding. Code(s): J18.9 - PNEUMONIA, UNSPECIFIED ORGANISM (2) Chronic congestive heart failure Current Visit: Yes Status: Chronic Code(s): I50.9 - HEART FAILURE, UNSPECIFIED (3) Chronic kidney disease Current Visit: Yes Status: Chronic Code(s): N18.9 - CHRONIC KIDNEY DISEASE, UNSPECIFIED (4) BPH (benign prostatic hyperplasia) Current Visit: Yes Status: Chronic Code(s): N40.0 - BENIGN PROSTATIC HYPERPLASIA WITHOUT LOWER URINRY TRACT SYMP (5) Chronic hypoxemic respiratory failure Current Visit: Yes Status: Chronic (6) Chronic atrial fibrillation Current Visit: Yes Status: Chronic Code(s): I48.2 - CHRONIC ATRIAL FIBRILLATION
[2018-02-28] MEDS: PLAVIX 75 MG Tablet PO SCH (09:27)
[2018-02-28] MEDS: ZYLOPRIM 100 MG PO SCH (09:27)
[2018-02-28] MEDS: Acidophilus TABLET PO SCH ×2 (09:27→22:08)
[2018-02-28] MEDS: BUMEX 1 MG PO SCH ×2 (09:27→16:34)
[2018-02-28] MEDS: Lanoxin 0.125MG TABLET PO SCH (09:27)
[2018-02-28] MEDS: Klor Con 10 MEQ PO SCH ×3 (09:27→22:09)
[2018-02-28] MEDS: FEOSOL 325 MG PO SCH ×2 (09:27→22:08)
[2018-02-28] MEDS: Lopressor 50 MG PO SCH ×2 (09:28→22:08)
[2018-02-28] MEDS: Flomax 0.4 MG PO SCH (09:28)
[2018-02-28] MEDS: FOLATE 1 MG PO SCH (09:28)
[2018-02-28] MEDS: ROCEPHIN 1 Gm-D5w 50 ml Bag** 1 G/50 ML IVPB IV SCH (09:28)
[2018-02-28] MEDS: DELTASONE 20 MG PO SCH (09:28)
[2018-02-28] MEDS: Proscar 5 MG PO SCH (09:29)
[2018-02-28] MEDS: NON-FORMULARY ITEM (Hydroxychloroquine Sulfate [Plaquenil] 0 MG) PO SCH ×2 (09:29→22:09)
[2018-02-28] MEDS: NovoLOG Insulin SQ SCH (09:30)
[2018-02-28] MEDS: Bactroban OINTMENT TOP SCH (09:38)
[2018-02-28] MEDS ORDERED: LIPITOR 40MG PO SCH (10:00)
[2018-02-28] MEDS ORDERED: NON-FORMULARY ITEM (Umeclidinium Brm/Vilanterol Tr [Anoro Ellipta 62.5-25 Mcg Inh] 1 PUFF) IH SCH (10:00)
[2018-02-28] MEDS: NovoLOG Insulin SQ PRN ×3 (11:21→22:31)
[2018-02-28] MEDS ORDERED: NovoLOG Insulin SQ SCH ×2 (12:00→17:00)
[2018-02-28] MEDS ORDERED: Coumadin 3 MG PO SCH (18:00)
[2018-02-28] MEDS ORDERED: WARFARIN SODIUM 6 MG PO SCH (18:00)
[2018-02-28] MEDS: ZOCOR 20MG PO SCH (22:08)
[2018-02-28] MEDS: Ambien 10 MG PO PRN (22:08)
[2018-02-28] MEDS: Lantus Insulin SQ SCH (22:32)
[2018-03-01 05:42] LABS: Hematocrit 37.5 % (42-50); Hemoglobin 12.5 gm/dl (12.5-18.0); Mean Cell Volume 92.1 fl (78-100); Mean Corpuscular Hemoglobin 30.7 pg (26-32); Mean Corpuscular Hgb Concent. 33.3 g/dl (32-36); Mean Platelet Volume 8.6 fl (6-9.5); Platelet Count 265 K/mm3 (150-450); Red Blood Count 4.07 M/mm3 (4.1-5.6); Red Cell Distribution Width 15.2 % (11.5-14.0); White Blood Count 8.5 K/mm3 (4.0-10.5)
[2018-03-01 05:56] LABS: INR 3.48 (0.8-3.0)
[2018-03-01 06:02] LABS: ANION GAP 11.4 MEQ/L (5-15); BLOOD UREA NITROGEN 35 mg/dL (9-20); CHLORIDE 100 mmol/L (98-107); Calcium 8.9 mg/dL (8.4-10.2); Carbon Dioxide 31 mmol/L (22-30); Creatinine 1 1.19 mg/dL (0.66-1.25); Glucose 70 mg/dL (74-106); Potassium 3.4 mmol/L (3.5-5.1); SODIUM 139 mmol/L (137-145)
[2018-03-01] MEDS: DUONEB 0.5-3 MG/3 ml Neb IH SCH (06:55)
[2018-03-01 07:00] VITALS: O2SAT 97
[2018-03-01] MEDS ORDERED: NovoLOG Insulin SQ SCH (08:00)
[2018-03-01] MEDS: Flomax 0.4 MG PO SCH (08:21)
[2018-03-01] MEDS: Lopressor 50 MG PO SCH (08:21)
[2018-03-01] MEDS: DELTASONE 20 MG PO SCH (08:22)
[2018-03-01] MEDS: FEOSOL 325 MG PO SCH (08:22)
[2018-03-01] MEDS: ZYLOPRIM 100 MG PO SCH (08:22)
[2018-03-01] MEDS: Bactroban OINTMENT TOP SCH (08:22)
[2018-03-01] MEDS: Klor Con 10 MEQ PO SCH (08:22)
[2018-03-01] MEDS: BUMEX 1 MG PO SCH (08:22)
[2018-03-01] MEDS: PLAVIX 75 MG Tablet PO SCH (08:22)
[2018-03-01] MEDS: FOLATE 1 MG PO SCH (08:22)
[2018-03-01] MEDS: Acidophilus TABLET PO SCH (08:22)
[2018-03-01] MEDS: Sodium Chloride 0.9% 10 ML FLUSH Syringe IV SCH (08:23)
[2018-03-01] MEDS: NON-FORMULARY ITEM (Hydroxychloroquine Sulfate [Plaquenil] 0 MG) PO SCH (08:23)
[2018-03-01] MEDS: Lanoxin 0.125MG TABLET PO SCH ×2 (08:24→08:37)
[2018-03-01] MEDS: ROCEPHIN 1 Gm-D5w 50 ml Bag** 1 G/50 ML IVPB IV SCH (08:26)
[2018-03-01] MEDS: Proscar 5 MG PO SCH (08:27)
[2018-03-01 08:36] VITALS: BP 136/78; PULSE 65
--- NOTE | 2018-03-01 08:40 | PCM.DCORD ---
- Discharge Discharge Date: 03/01/18 Disposition: Home, Self-Care Condition: Stable Prescriptions: New Insulin Aspart [NovoLOG Insulin] 6 unit SQ BREAKFAST unit Insulin Aspart [NovoLOG Insulin] 8 unit SQ DINNER unit Insulin Aspart [NovoLOG Insulin] 8 unit SQ LUNCH unit Cefdinir 300 mg [Omnicef 300 mg] 300 mg PO BID #14 capsule Continue Tamsulosin HCl 0.4 mg [Flomax 0.4 MG] 2 cap PO DAILY Potassium Chloride 10 Meq Tab* [Klor Con 10 MEQ] 10 meq PO TID Clopidogrel Bisulfate 75 mg [PLAVIX 75 MG Tablet] 75 mg PO DAILY Nitroglycerin 0.4 mg Tablet [Nitrostat 0.4 MG Tablet] 0.4 mg SL UD PRN PRN Reason: Chest Pain Niacin 500 mg PO HS Metoprolol Tartrate 50 mg [Lopressor 50 MG] 100 mg PO BID Finasteride 5 mg [Proscar 5 MG] 5 mg PO DAILY Ferrous Sulfate 325 mg [Feosol 325 mg] 325 mg PO BID Prednisone 20 mg [Deltasone 20 mg] 20 mg PO DAILY Atorvastatin Calcium [Lipitor 40Mg] 40 mg PO DAILY Acidophilus/Bifido Longum [Lactobacillus Capsule] 1 tab PO BID Hydroxychloroquine Sulfate [Plaquenil] 200 mg PO BID Folic Acid 1 mg [Folate 1 mg] 1 mg PO DAILY Colestipol HCl [Colestid] 1 gm PO BID Bumetanide [Bumex] 2 mg PO BID Allopurinol 100 mg PO DAILY Zolpidem Tartrate 10 mg [Ambien 10 MG] 10 mg PO HSPRN PRN PRN Reason: Insomnia Sennosides/Docusate Sodium [Senna-Docusate Sodium Tablet] 2 tab PO BIDPRN PRN PRN Reason: Constipation Oxymetazoline HCl [Nasal [place]] 1 spray NS DAILY PRN PRN PRN Reason: DRYNESS Polyethylene Glycol 3350 17 gm [Miralax Powder 17GM PACKET] 17 gm PO BIDPRN PRN PRN Reason: Constipation Ondansetron HCl [Zofran] 4 mg PO Q4HPRN PRN PRN Reason: Nausea Mupirocin [Bactroban OINTMENT] 1 applic TOP DAILY Insulin Glargine [Lantus Insulin] 20 unit SQ HS Digoxin 0.125 mg Tablet [Lanoxin 0.125MG TABLET] 0.125 mg PO DAILY Glycopyrrolate/Formoterol Fum [Bevespi Aerosphere Inhaler] 2 puff IH BID Umeclidinium Brm/Vilanterol Tr [Anoro Ellipta 62.5-25 Mcg INH] 1 puff IH DAILY Albuterol Common Canister [Proventil Common Canister] 2 puff IH Q4HPRN PRN PRN Reason: Shortness Of Breath/Wheezing Albuterol 2.5 mg/3 ml Neb [Proventil 2.5 mg/3 ml Neb] 1 neb IH Q6HPRN PRN PRN Reason: Shortness Of Breath/Wheezing Insulin Aspart [Novolog Flexpen] 8 unit SQ UD Insulin Aspart [Novolog Flexpen] 6 unit SQ QAM Warfarin Sodium 6 mg PO UD #0 Discontinued Warfarin Sodium 2.5 mg [Coumadin 2.5 MG] 2.5 mg PO UD Additional Instructions: INR at coumadin clinic in [facility] on Tuesday Follow up with: BRUCE FAY [Primary Care Provider] - 03/07/18 10:30 am
[2018-03-01] MEDS ORDERED: Coumadin 2.5 MG PO SCH (18:00)
--- NOTE | 2018-03-01 23:27 | PCM.DS ---
Discharge Summary Date of Admission: 02/27/18 13:23 Date of Discharge: 03/01/18 Admitting Physician: BRUCE FAY Primary Care Provider: BRUCE FAY Allergies Allergies erythromycin base Allergy (Severe, Verified 02/27/18 11:39) Hives tramadol Allergy (Severe, Verified 02/27/18 11:39) URINE OUTPUT DOWN lisinopril Allergy (Verified 02/27/18 11:39) Hospital Summary - Hospital Course Hospital Course: Mr. Mckeon has history of CHF and CKD with insulin dependent diabetes and atrial fibrillation on anticoagulation who presented to clinic with 3 days of cough, shortness of breath weakness and fatigue. He was found to have temperature of 102 and low bp high HR and he was sent for direct admission. He was found tot have pneumonia started on ceftriaxone and showed improvement. His inr was supratherapuetic and his warfarin was held while in the hospital and it was improving. He was feeling better cultures where negative and sputum culture pending. He will be transitioned to cefdinir to complete 7 additional days. He is to continue use of his home oxygen. He will decrease warfarin from alternating 9mg and 6mg to 6mg daily starting tomorrow after we have held it now 3 days and will have INR on Tuesday. - Vitals & Intake/Output Vital Signs: Vital Signs Temperature 97.8 F 03/01/18 07:27 Pulse Rate 65 03/01/18 07:27 Respiratory Rate 20 03/01/18 07:27 Blood Pressure 135/79 03/01/18 07:27 O2 Sat by Pulse Oximetry 97 03/01/18 07:27 Oxygen-Last Documented O2 Percentage 2 Liters = 28% Intake & Output: Intake & Output 02/27/18 02/28/18 03/01/18 03/02/18 11:59 11:59 11:59 11:59 Intake Total 1999 1150 Output Total 1900 2525 Balance 100 -1375 Weight 68.2 kg - Lab Result Diagrams: 03/01/18 05:20 03/01/18 05:20 Lab Results-Last 24 Hrs: Accuchecks Date 02/28/18 Time 07:30 Accucheck Value: 115 Lab Results-Last 24 Hours 03/01/18 03/01/18 03/01/18 Range/Units 05:20 05:20 05:20 WBC 8.5 (4.0-10.5) K/mm3 RBC 4.07 L (4.1-5.6) M/mm3 Hgb 12.5 (12.5-18.0) gm/dl Hct 37.5 L (42-50) % MCV 92.1 (78-100) fl MCH 30.7 (26-32) pg MCHC 33.3 (32-36) g/dl RDW 15.2 H (11.5-14.0) % Plt Count 265 (150-450) K/mm3 MPV 8.6 (6-9.5) fl PT 41.0 H (8.83-12.87) SECONDS INR 3.48 H (0.8-3.0) Sodium 139 (137-145) mmol/L Potassium 3.4 L (3.5-5.1) mmol/L Chloride 100 (98-107) mmol/L Carbon Dioxide 31 H (22-30) mmol/L Anion Gap 11.4 (5-15) MEQ/L BUN 35 H (9-20) mg/dL Creatinine 1.19 (0.66-1.25) mg/dL Estimated GFR > 60.0 ML/MIN Glucose 70 L (74-106) mg/dL Calcium 8.9 (8.4-10.2) mg/dL Micro Results-Entire Visit: Microbiology 02/27/18 15:10 Urine Culture - Final Clean Catch Midstream NO GROWTH 02/27/18 12:45 Blood Culture - Preliminary Blood NO GROWTH TO DATE 02/27/18 11:29 Blood Culture - Preliminary Blood NO GROWTH TO DATE Accuchecks Date 02/28/18 Time 07:30 Accucheck Value: 115 - Procedures and Test Procedures and Tests throughout Hospitalization: Therapy Orders & Screens 02/27/18 11:01 Oxygen NASAL CANNULA 2 lpm Comment: titrate as needed Diagnosis: Fever, weakness 02/27/18 11:59 RT Screen per Nursing Assess ONCE Comment: Protocol Order Physician Instructions: Greater than 3 points order RT Admission Screen Reason For Exam: Triggered on Admission Diagnosis: weakness. Diagnosis: weakness. Pneumonia: No Home O2: Yes Asthma: No CHF: No Home CPAP/BIPAP: Yes Home Nebs/MDI: Yes Total Points: 15 02/28/18 07:00 Respiratory Nebulizer UD Comment: DUONEB DAILY Diagnosis: pneumonia Discharge Exam General Appearance: no apparent distress, alert Neurologic Exam: alert, oriented x 3, cooperative, normal mood/affect, nml cerebellar function, sensation nml, No motor deficits Skin Exam: normal color, warm, dry Eye Exam: PERRL, EOMI, eyes nml inspection Ears, Nose, Throat Exam: normal ENT inspection, pharynx normal, moist mucous membranes Neck Exam: normal inspection, non-tender, supple, full range of motion Respiratory Exam: crackles/rales (bibasilar), No respiratory distress Cardiovascular Exam: regular rate/rhythm, normal heart sounds Gastrointestinal/Abdomen Exam: soft, No tenderness, No mass Extremity Exam: normal inspection, normal range of motion Back Exam: normal inspection, normal range of motion, No CVA tenderness, No vertebral tenderness Male Genitalia Exam: deferred Rectal Exam: deferred Final Diagnosis/Problem List - Final Discharge Diagnosis/Problem (1) Pneumonia Status: Acute Onset Date: ~02/28/18 (2) Chronic congestive heart failure Status: Chronic Onset Date: ~02/28/18 (3) Chronic kidney disease Status: Chronic Onset Date: ~02/28/18 (4) BPH (benign prostatic hyperplasia) Status: Chronic Onset Date: ~02/28/18 (5) Chronic hypoxemic respiratory failure Status: Chronic Onset Date: ~02/28/18 (6) Chronic atrial fibrillation Status: Chronic Onset Date: ~02/28/18 (7) Supratherapeutic INR Status: Acute - Discharge Disposition: Home, Self-Care Condition: Stable Prescriptions: New Insulin Aspart [NovoLOG Insulin] 6 unit SQ BREAKFAST unit Insulin Aspart [NovoLOG Insulin] 8 unit SQ DINNER unit Insulin Aspart [NovoLOG Insulin] 8 unit SQ LUNCH unit Cefdinir 300 mg [Omnicef 300 mg] 300 mg PO BID #14 capsule Continue Tamsulosin HCl 0.4 mg [Flomax 0.4 MG] 2 cap PO DAILY Potassium Chloride 10 Meq Tab* [Klor Con 10 MEQ] 10 meq PO TID Clopidogrel Bisulfate 75 mg [PLAVIX 75 MG Tablet] 75 mg PO DAILY Nitroglycerin 0.4 mg Tablet [Nitrostat 0.4 MG Tablet] 0.4 mg SL UD PRN PRN Reason: Chest Pain Niacin 500 mg PO HS Metoprolol Tartrate 50 mg [Lopressor 50 MG] 100 mg PO BID Finasteride 5 mg [Proscar 5 MG] 5 mg PO DAILY Ferrous Sulfate 325 mg [Feosol 325 mg] 325 mg PO BID Prednisone 20 mg [Deltasone 20 mg] 20 mg PO DAILY Atorvastatin Calcium [Lipitor 40Mg] 40 mg PO DAILY Acidophilus/Bifido Longum [Lactobacillus Capsule] 1 tab PO BID Hydroxychloroquine Sulfate [Plaquenil] 200 mg PO BID Folic Acid 1 mg [Folate 1 mg] 1 mg PO DAILY Colestipol HCl [Colestid] 1 gm PO BID Bumetanide [Bumex] 2 mg PO BID Allopurinol 100 mg PO DAILY Zolpidem Tartrate 10 mg [Ambien 10 MG] 10 mg PO HSPRN PRN PRN Reason: Insomnia Sennosides/Docusate Sodium [Senna-Docusate Sodium Tablet] 2 tab PO BIDPRN PRN PRN Reason: Constipation Oxymetazoline HCl [Nasal [place]] 1 spray NS DAILY PRN PRN PRN Reason: DRYNESS Polyethylene Glycol 3350 17 gm [Miralax Powder 17GM PACKET] 17 gm PO BIDPRN PRN PRN Reason: Constipation Ondansetron HCl [Zofran] 4 mg PO Q4HPRN PRN PRN Reason: Nausea Mupirocin [Bactroban OINTMENT] 1 applic TOP DAILY Insulin Glargine [Lantus Insulin] 20 unit SQ HS Digoxin 0.125 mg Tablet [Lanoxin 0.125MG TABLET] 0.125 mg PO DAILY Glycopyrrolate/Formoterol Fum [Bevespi Aerosphere Inhaler] 2 puff IH BID Umeclidinium Brm/Vilanterol Tr [Anoro Ellipta 62.5-25 Mcg INH] 1 puff IH DAILY Albuterol Common Canister [Proventil Common Canister] 2 puff IH Q4HPRN PRN PRN Reason: Shortness Of Breath/Wheezing Albuterol 2.5 mg/3 ml Neb [Proventil 2.5 mg/3 ml Neb] 1 neb IH Q6HPRN PRN PRN Reason: Shortness Of Breath/Wheezing Insulin Aspart [Novolog Flexpen] 8 unit SQ UD Insulin Aspart [Novolog Flexpen] 6 unit SQ QAM Warfarin Sodium 6 mg PO UD #0 Discontinued Warfarin Sodium 2.5 mg [Coumadin 2.5 MG] 2.5 mg PO UD Instructions: Pneumonia, Adult (DC) Additional Instructions: INR at coumadin clinic [facility] on Tuesday Follow up with: BRUCE FAY [Primary Care Provider] - 03/07/18 10:30 am
== END 2018-03-01 10:05 | disposition home or self-care (01) | DRG 292 ==
LOC: MED SURG 10:43 → OBSVTOIN 13:23
PROVIDERS: ADMIT Family Medicine; ATTEND Family Medicine
DX: J18.9 Pneumonia, unspecified organism (principal); I50.9 Heart failure, unspecified; J96.11 Chronic respiratory failure with hypoxia; N18.9 Chronic kidney disease, unspecified; N40.0 Benign prostatic hyperplasia without lower urinary tract symptoms; I48.2 Chronic atrial fibrillation; R79.1 Abnormal coagulation profile; E11.9 Type 2 diabetes mellitus without complications; Z79.4 Long term (current) use of insulin; Z79.01 Long term (current) use of anticoagulants; M19.90 Unspecified osteoarthritis, unspecified site; Z86.73 Personal history of transient ischemic attack (TIA), and cerebral infarction without residual deficits; Z79.899 Other long term (current) drug therapy
CPT/HCPCS: 36415; 36600; 71046; 80048; 80053; 81000; 82375; 82803; 83036; 83605; 83880; 85025; 85027; 85610; 87040; 87070; 87086; 94150; 94640; 94760; J7609; J0696; A9270-GY